=== PATIENT | female | born 2000 | race Two or more races ===

== ENCOUNTER 2023-09-15 17:19 | Emergency (ER) | payer MEDICAID, OTHER ==
[~2023-09-15] VITALS: Ht 160 cm; Wt 74.8 kg
[2023-09-15] MEDS ORDERED: TDAP [DIPH/PERTUSSIS/TET] 0.5 ML VIAL IM ONE (20:47)
[2023-09-15] MEDS: TDAP [DIPH/PERTUSSIS/TET] 0.5 ML VIAL IM ONE (20:54)
[2023-09-15] MEDS ORDERED: IBUPROFEN 600 MG TABLET ONE (20:56)
[2023-09-15] MEDS: IBUPROFEN 600 MG TABLET PO ONE (20:58)
[2023-09-15 21:21] VITALS: BP 120/76; TEMP 98.2; O2SAT 100
== END 2023-09-15 21:22 | disposition home or self-care (01) ==
LOC: ER 17:19
DX: S80.211A Abrasion, right knee, initial encounter (principal); W18.39XA Other fall on same level, initial encounter; Y93.89 Activity, other specified; Y92.89 Other specified places as the place of occurrence of the external cause; Y99.8 Other external cause status
CPT/HCPCS: 73564-TC; 90715